=== PATIENT | female | born 1975 | race Asian ===

== ENCOUNTER 2019-07-08 13:51 | Emergency (ER) | payer BC ==
[~2019-07-08] VITALS: Ht 170.2 cm; Wt 106.6 kg
[2019-07-08 14:06] VITALS: TEMP 98.2
[2019-07-08 14:38] LABS: PLATELET COUNT 244 K/uL (152-353)
[2019-07-08 14:43] LABS: POTASSIUM 3.4 mmol/L (3.6-5.2); SODIUM 142 mmol/L (136-145)
[2019-07-08 14:49] LABS: PARTIAL THROMBOPLASTIN TIME 27.7 SECONDS (24.5-33.6)
[2019-07-08 16:39] VITALS: BP 156/92
== END 2019-07-08 17:00 | disposition home or self-care (01) ==
LOC: ED 13:51
PROVIDERS: Hospitalist
DX: R09.1 Pleurisy (principal); I10 Essential (primary) hypertension; F17.210 Nicotine dependence, cigarettes, uncomplicated
CPT/HCPCS: 80053; 82550; 82553; 83880; 84484; 85027; 85379; 85610; 85730; 93005; 96374; 96375; 99284; J1885; J2405; J2930; Q9963

== ENCOUNTER 2021-04-10 10:52 | Emergency (ER) | payer OTHER ==
[~2021-04-10] VITALS: Ht 170.2 cm; Wt 106.6 kg
[2021-04-10 11:35] LABS: PLATELET COUNT 177 K/uL (152-353)
[2021-04-10 12:03] LABS: PARTIAL THROMBOPLASTIN TIME 23.2 SECONDS (24.5-33.6)
[2021-04-10 12:17] LABS: POTASSIUM 3.1 mmol/L (3.6-5.2); SODIUM 142 mmol/L (136-145)
[2021-04-10 13:10] VITALS: BP 157/96; TEMP 96.3
== END 2021-04-10 13:10 | disposition home or self-care (01) ==
LOC: ED 10:52
PROVIDERS: Hospitalist
DX: U07.1 COVID-19 (principal); J06.9 Acute upper respiratory infection, unspecified; I16.0 Hypertensive urgency; E87.6 Hypokalemia; F17.210 Nicotine dependence, cigarettes, uncomplicated
CPT/HCPCS: 80053; 82550; 83880; 84484; 85027; 85610; 85730; 93005; 96374; 96376; 99284; J0360; J2270; J2405; J2765

== ENCOUNTER 2021-06-04 14:17 | Emergency (ER) | payer OTHER ==
[~2021-06-04] VITALS: Ht 170.2 cm; Wt 106.6 kg
[2021-06-04 14:17] VITALS: TEMP 98.4
[2021-06-04 14:48] LABS: PLATELET COUNT 226 K/uL (152-353)
[2021-06-04 15:04] LABS: POTASSIUM 3.2 mmol/L (3.6-5.2)
[2021-06-04 15:55] VITALS: BP 200/124
== END 2021-06-04 15:58 | disposition home or self-care (01) ==
LOC: ED 14:17
PROVIDERS: Hospitalist
DX: I16.0 Hypertensive urgency (principal); F43.22 Adjustment disorder with anxiety; R11.2 Nausea with vomiting, unspecified; F17.210 Nicotine dependence, cigarettes, uncomplicated
CPT/HCPCS: 80053; 80320; 83690; 85027; 93005; 96360; 96375; 99284; J0360; J2405; J3410

== ENCOUNTER 2022-12-02 09:06 | Emergency (ER) | payer OTHER ==
[~2022-12-02] VITALS: Ht 170.2 cm; Wt 108.9 kg
[2022-12-02 09:21] VITALS: BP 169/111; TEMP 97.2
== END 2022-12-02 09:45 | disposition left against medical advice (07) ==
LOC: ED 09:06
DX: M62.838 Other muscle spasm (principal); I10 Essential (primary) hypertension; V73.5XXA Driver of bus injured in collision with car, pick-up truck or van in traffic accident, initial encounter; Y92.89 Other specified places as the place of occurrence of the external cause; F17.210 Nicotine dependence, cigarettes, uncomplicated; Z53.29 Procedure and treatment not carried out because of patient's decision for other reasons
CPT/HCPCS: 99281

== ENCOUNTER 2022-12-07 12:34 | Outpatient (CLI) | payer OTHER | END 2022-12-07 19:00 | disposition home or self-care (01) | LOC: RAD 12:34 | PROVIDERS: ATTEND Internal Medicine | DX: S13.9XXD Sprain of joints and ligaments of unspecified parts of neck, subsequent encounter (principal); S39.012D Strain of muscle, fascia and tendon of lower back, subsequent encounter; S70.01XD Contusion of right hip, subsequent encounter; S40.011D Contusion of right shoulder, subsequent encounter; Y92.89 Other specified places as the place of occurrence of the external cause ==